=== PATIENT | male | born 1960 | race Caucasian/White ===

== ENCOUNTER 2023-06-10 12:23 | Emergency (ER) | payer MEDICARE ==
[2023-06-10] MEDS ORDERED: METHadone HCl 10 MG TAB PO SCH (13:30)
== END 2023-06-10 13:45 | disposition home or self-care (01) ==
LOC: NAV ERS 12:23
DX: M25.511 Pain in right shoulder (principal); F17.220 Nicotine dependence, chewing tobacco, uncomplicated; W22.8XXA Striking against or struck by other objects, initial encounter

== ENCOUNTER 2023-08-07 13:24 | Emergency (ER) | payer MEDICARE ==
[2023-08-07] MEDS ORDERED: Ketorolac Tromethamine 60 MG/2 ML VIAL ONE (14:11)
== END 2023-08-07 14:27 | disposition home or self-care (01) ==
LOC: NAV ERS 13:24
DX: M54.9 Dorsalgia, unspecified (principal); G89.29 Other chronic pain; F17.220 Nicotine dependence, chewing tobacco, uncomplicated
CPT/HCPCS: 96372; 99283; J1885

== ENCOUNTER 2025-06-07 15:03 | Emergency (ER) | payer MEDICARE ==
[2025-06-07] MEDS ORDERED: Lidocaine 1% w/Epinephrine 1:100K 20 ML VIAL ONE (15:23)
== END 2025-06-07 16:30 | disposition home or self-care (01) ==
LOC: NAV ERS 15:03
DX: L72.3 Sebaceous cyst (principal); F17.220 Nicotine dependence, chewing tobacco, uncomplicated
CPT/HCPCS: 99282

== ENCOUNTER 2025-08-16 13:49 | Emergency (ER) | payer MEDICARE ==
[2025-08-16] MEDS ORDERED: Lidocaine 1% (PF) 30 ML VIAL ONE (14:01)
== END 2025-08-16 15:03 | disposition home or self-care (01) ==
LOC: NAV ERS 13:49
DX: S61.210A Laceration without foreign body of right index finger without damage to nail, initial encounter (principal); F17.220 Nicotine dependence, chewing tobacco, uncomplicated; W45.8XXA Other foreign body or object entering through skin, initial encounter
CPT/HCPCS: 12001; 99282; J2003

== ENCOUNTER 2025-08-26 10:39 | Emergency (ER) | payer MEDICARE | END 2025-08-26 11:07 | disposition home or self-care (01) | LOC: NAV ERS 10:39 | DX: S61.210D Laceration without foreign body of right index finger without damage to nail, subsequent encounter (principal); Z48.02 Encounter for removal of sutures; F17.220 Nicotine dependence, chewing tobacco, uncomplicated; X58.XXXD Exposure to other specified factors, subsequent encounter ==